=== PATIENT | female | born 1940 | race Caucasian/White ===

== ENCOUNTER 2016-10-07 10:32 | Emergency (ER) | payer MEDICARE, BC ==
[~2016-10-07] VITALS: Ht 162.6 cm; Wt 69.9 kg
[2016-10-07 10:32] VITALS: BP 167/89
--- NOTE | 2016-10-07 11:26 | PHYS DOC ---
General Chief Complaint: EARACHE/EAR PAIN Stated Complaint: HEARING LOSS Time Seen by MD: 10:34 Source: patient, old records Exam Limitations: no limitations Problems: History of Present Illness Initial Comments "I have ear problems my whole life, my body will not clear the wax... I have to see an ENT regularly to clean them out." Pt is 76/F to ED c/o wax in right ear. Pt states she missed her appt for ear cleaning last month with ENT due to spouse 's medical problems. She has rescheduled this visit for this Thursday 10/12. Pt states this am right ear muffled hearing, sensation of fullness. She tried to pop it at home without difficulty. She has allergic rhinitis but states those symptoms have been controlled, feels today's sx are wax related. 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 No right ear trauma/discharge/pain, no ALVARENGA/ focal neurodef. Pt has HTN baseline, on 4 meds controlled. States she was/is very anxious this am, compounded by watching BP monitor in ED. 193/76 in ED (took her daily meds ) no cp/sob/alvarenga/focal neurodeficit, appears to be physiologic response to stress. Not currently on coumadin due to pacemaker related chest hematoma, has cardio f/ u scheduled. Timing/Duration: gradual, this morning Severity: moderate Location: ear (R) Prearrival Treatment: no prearrival treatment Modifying Factors: worse with lying down Associated Symptoms: change in hearing, other Allergies: Coded Allergies: Iodinated Contrast Media - IV Dye (Verified Allergy, Mild, ANAPHYLAXIS, 10/19/14) diphenhydramine (Verified Allergy, Mild, EXCITABILITY, 10/19/14) Past Medical History Medical History: other (CAD, CHF, atrial fibrillation, DM, HLP, GERD, HTN, allergic rhinitis, hearing loss) Surgical History: other (cardiac stent x 5, pacemaker, ablation) Social History Smoker: non-smoker Alcohol: none Drugs: none Constitutional: denies chills, denies diaphoresis, denies fever, denies malaise Eyes: denies blindness, denies blurred vision, denies drainage, denies decreased acuity Ears: see HPI Nose: denies congestion, denies epistaxis Throat: denies pain, denies swelling, denies neck stiffness Respiratory: denies cough, denies shortness of breath, denies wheezing Cardiovascular: denies chest pain, denies palpitations, denies syncope Gastrointestinal: denies diarrhea, denies nausea, denies vomiting Neurological: denies headache, denies numbness, denies paresthesia, denies weakness Physical Exam General Appearance: WD/WN, no apparent distress Eyes: bilateral eye EOMI, bilateral eye PERRL, bilateral eye normal inspection Ears: right ear TM normal, right ear foreign body (cerumen impaction), bilateral ear auricle normal, bilateral ear canal normal Nose: normal inspection Mouth/Throat: normal mouth inspection, pharynx normal Neck: non-tender, supple Cardiovascular/Respiratory: normal peripheral pulses, no respiratory distress Neurologic/Psychiatric: icer hand II-XII nml as tested, no motor/sensory deficits, alert, normal mood/affect, oriented x 3 Skin: normal color, warm/dry Orders, Labs, Meds 1203: recheck after lavage, right canal no cerumen. Pt states she feels much better, no new or progressive symptoms. Departure Time of Disposition: 12:03 Disposition: 01 HOME, SELF-CARE Diagnosis: cerumen impaction right, HTN Condition: IMPROVED Patient Instructions: Cerumen Impaction-SportsMed, Hypertension, [id number] Additional Instructions: Rest, no strenuous activity. Continue current meds. Follow up with ENT on Thursday 10/12 as scheduled. Return to ED with new or changing symptoms. HELADIO GIPSON DO Oct 07, 2016 11:26
== END 2016-10-07 12:31 | disposition home or self-care (01) ==
LOC: ER 10:35
DX: H61.21 Impacted cerumen, right ear (principal); I25.10 Atherosclerotic heart disease of native coronary artery without angina pectoris; I11.0 Hypertensive heart disease with heart failure; I50.9 Heart failure, unspecified; E78.5 Hyperlipidemia, unspecified; I48.91 Unspecified atrial fibrillation; K21.9 Gastro-esophageal reflux disease without esophagitis; H91.92 Unspecified hearing loss, left ear; Z95.0 Presence of cardiac pacemaker; Z95.5 Presence of coronary angioplasty implant and graft; Z91.041 Radiographic dye allergy status; Z88.8 Allergy status to other drugs, medicaments and biological substances
CPT/HCPCS: 69209; 99282

== ENCOUNTER 2017-03-23 17:32 | Emergency (ER) | payer MEDICARE, BC ==
[~2017-03-23] VITALS: Ht 162.6 cm; Wt 70.0 kg
[2017-03-23 17:52] VITALS: BP 225/77
--- NOTE | 2017-03-23 18:18 | PHYS DOC ---
Past History Past Medical History: Hypertension, Other Past Surgical History: Other Smoking: Non-smoker Alcohol Use: None Drug Use: None Adult General Chief Complaint Chief Complaint: HYPERTENSION HPI HPI Patient is a 76 year old female who presents with hypertension. She states she has high blood pressures been instructed that when he gets above 180s to do one tablet of clonidine. She did this today and denies any nausea vomiting chest pain headache or other concerning symptoms. Her blood pressure upon my evaluation is the 170s. She has had a past medical history of A. fib had ablations in addition to coronary stents in the past. She follows at the [facility] cardiology group. Review of Systems Review of Systems Constitutional: Denies fever or chills [] Eyes: Denies change in visual acuity, redness, or eye pain [] HENT: Denies nasal congestion or sore throat [] Respiratory: Denies cough or shortness of breath [] Cardiovascular: No additional information not addressed in HPI [] GI: Denies abdominal pain, nausea, vomiting, bloody stools or diarrhea [] : Denies dysuria or hematuria [] Musculoskeletal: Denies back pain or joint pain [] Integument: Denies rash or skin lesions [] Neurologic: Denies headache, focal weakness or sensory changes [] Endocrine: Denies polyuria or polydipsia [] Allergies Allergies Allergies Coded Allergies Type Severity Reaction Last Updated Verified Iodinated Contrast Media - IV Dye Allergy Mild ANAPHYLAXIS 10/19/14 Yes diphenhydramine Allergy Mild EXCITABILITY 10/19/14 Yes Physical Exam Physical Exam Constitutional: Well developed, well nourished, no acute distress, non-toxic appearance. [] HENT: Normocephalic, atraumatic, bilateral external ears normal, oropharynx moist, no oral exudates, nose normal. [] Eyes: PERRLA, EOMI, conjunctiva normal, no discharge. [] Neck: Normal range of motion, no tenderness, supple, no stridor. [] Cardiovascular:Heart rate regular rhythm, no murmur [] Lungs & Thorax: Bilateral breath sounds clear to auscultation [] Abdomen: Bowel sounds normal, soft, no tenderness, no masses, no pulsatile masses. [] Skin: Warm, dry, no erythema, no rash. [] Back: No tenderness, no CVA tenderness. [] Extremities: No tenderness, no cyanosis, no clubbing, ROM intact, no edema. [] Neurologic: Alert and oriented X 3, normal motor function, normal sensory function, no focal deficits noted. [] Psychologic: Affect normal, judgement normal, mood normal. [] Current Patient Data Vital Signs Vital Signs Date Time Temp Pulse Resp B/P (MAP) Pulse Ox O2 Delivery O2 Flow Rate FiO2 03/23/17 17:52 98.1 65 20 96 Room Air EKG EKG EKG shows normal sinus rhythm with rate [address] elevations or T-wave inversions, normal axis, QTC 390 ms, as interpreted by me. Radiology/Procedures Radiology/Procedures One view chest x-ray did not show any focal salt elevations, bony abnormality's , pneumothorax, as interpreted by me. Impressions: Hypertension Course & Med Decision Making Course & Med Decision Making Pertinent Labs and Imaging studies reviewed. (See chart for details) Labs, chest x-ray, EKG nonacute. Her blood pressure upon arrival was 210 and then slowly came down 170s and as 150s. She is to follow-up with primary care physician. Return precautions given. She is agreeable plan and is in stable condition this time. Dragon Disclaimer Dragon Disclaimer This chart was dictated in whole or in part using Voice Recognition software in a busy, high-work load, and often noisy Emergency Department environment. It may contain unintended and wholly unrecognized errors or omissions. Departure Departure: Impression: Primary Impression: HTN (hypertension) Disposition: HOME, SELF-CARE Condition: STABLE Referrals: NARDA MEHTA MD (PCP) Patient Instructions: Arterial Hypertension Additional Instructions: Your EKG, blood work, chest x-ray did not show any acute abnormality's. Your blood pressure came down by itself after you took clonidine. Please continue your clonidine regimen that your milk collector prescribed to your already. Return ER if you have surely high blood pressure that's not responding to clonidine, you have chest pain, nausea, shortness of breath or other concerns. Please follow-up with your primary care physician within the next week. BRITTANI GARNER MD Mar 23, 2017 18:18
--- NOTE | 2017-03-23 18:49 | EKG ---
[address] [address] Test Date: 2017-03-23 Test Time: 18:42:07 Pat Name: CHRISTOPHER HAYNES Department: Room: Gender: F Vice President Integrated: : 1940 Requested By: BRITTANI GARNER Order Number: [id number] Reading MD: Measurements Intervals [place] Rate: 65 P: 90 FL: 282 QRS: 38 QRSD: 88 T: -34 QT: 366 QTc: 385 Interpretive Statements SINUS RHYTHM PROLONGED [place] INTERVAL ST & T ABNORMALITY, CONSIDER INFERIOR ISCHEMIA OR LEFT VENTRICULAR STRAIN ABNORMAL ECG RI6.01 No previous ECG available for comparison
[2017-03-23 19:26] LABS: BASO % 0 % (0-3); EOS # 0.1 x10^3/uL (0.0-0.7); EOS % 1 % (0-3); HEMATOCRIT 36.7 % (36.0-47.0); HEMOGLOBIN 12.5 g/dL (12.0-15.5); LYMPH % 12 % (24-48); MEAN CORPUSCULAR HEMOGLOBIN 29 pg (25-35); MEAN CORPUSCULAR HGB CONC 34 g/dL (31-37); MEAN CORPUSCULAR VOLUME 84 fL (79-100); MONO # 0.9 x10^3/uL (0.0-1.1); MONO % 5 % (0-9); NEUT # 13.3 x10^3uL (1.8-7.7); NEUT % 82 % (31-73); PLATELET COUNT 275 x10^3/uL (140-400); RED BLOOD COUNT 4.39 x10^6/uL (3.50-5.40); RED CELL DISTRIBUTION WIDTH 13.7 % (11.5-14.5); WHITE BLOOD COUNT 16.3 x10^3/uL (4.0-11.0)
[2017-03-23 19:40] LABS: ALBUMIN 3.7 g/dL (3.4-5.0); CREATININE 1.2 mg/dL (0.6-1.0); DIRECT BILIRUBIN 0.2 mg/dL (0.0-0.2); GFR 43.8; MAGNESIUM 1.8 mg/dL (1.8-2.4); POTASSIUM 4.2 mmol/L (3.5-5.1); TOTAL BILIRUBIN 0.5 mg/dL (0.2-1.0); TOTAL PROTEIN 7.6 g/dL (6.4-8.2)
[2017-03-23 20:33] LABS: % LYMPHS 12 % (24-48); % MONOS 5 % (0-10); % MYELOS 1 % (0-0); % SEGS 82 % (35-66)
[2017-03-23 20:34] LABS: PLT ESTIMATE ADEQUATE (ADEQUATE)
--- NOTE | 2017-03-24 08:45 | RAD ---
PORTABLE CHEST 1V Clinical Indication: htn Comparison: Chest radiograph dated 10/19/2014. Findings: Stable left pacemaker. Normal lung volume. No new consolidation. Stable pulmonary vasculature. No pleural effusion or pneumothorax. Stable mild cardiomegaly. Stable atherosclerotic and tortuous thoracic aorta. No acute osseous abnormality. IMPRESSION: No acute cardiopulmonary process.
== END 2017-03-23 20:13 | disposition home or self-care (01) ==
LOC: ER 17:32
DX: I10 Essential (primary) hypertension (principal); I48.91 Unspecified atrial fibrillation; Z95.5 Presence of coronary angioplasty implant and graft; Z88.8 Allergy status to other drugs, medicaments and biological substances; Z91.041 Radiographic dye allergy status
CPT/HCPCS: 36415; 71010; 80048; 80076; 82553; 83735; 83880; 84443; 84484; 85007; 85025; 93005; 99285-25

== ENCOUNTER 2017-05-23 22:05 | Emergency (ER) | payer MEDICARE, BC ==
[~2017-05-23] VITALS: Ht 162.6 cm; Wt 70.0 kg
[2017-05-23] MEDS ORDERED: ASPIRIN 81 MG TAB.CHEW PO ONE (22:15)
[2017-05-23] MEDS ORDERED: NITROGLYCERIN SUBLINGUAL 0.4 MG BOTTLE OF 25. SL PRN (22:45)
[2017-05-23 23:09] LABS: BASO # 0.1 x10^3/uL (0.0-0.2); BASO % 1 % (0-3); EOS # 0.2 x10^3/uL (0.0-0.7); EOS % 2 % (0-3); HEMOGLOBIN 11.5 g/dL (12.0-15.5); LYMPH # 2.2 x10^3/uL (1.0-4.8); LYMPH % 21 % (24-48); MEAN CORPUSCULAR HEMOGLOBIN 29 pg (25-35); MEAN CORPUSCULAR HGB CONC 35 g/dL (31-37); MEAN CORPUSCULAR VOLUME 83 fL (79-100); MONO # 0.7 x10^3/uL (0.0-1.1); MONO % 7 % (0-9); NEUT # 7.4 x10^3uL (1.8-7.7); NEUT % 70 % (31-73); PLATELET COUNT 237 x10^3/uL (140-400); RED BLOOD COUNT 3.96 x10^6/uL (3.50-5.40); WHITE BLOOD COUNT 10.6 x10^3/uL (4.0-11.0)
[2017-05-23 23:28] LABS: ALBUMIN 3.5 g/dL (3.4-5.0); ALBUMIN/GLOBULIN RATIO 0.9 (1.0-1.7); CALCIUM 8.5 mg/dL (8.5-10.1); CREATININE 1.2 mg/dL (0.6-1.0); GFR 43.8; MAGNESIUM 1.5 mg/dL (1.8-2.4); POTASSIUM 3.9 mmol/L (3.5-5.1); TOTAL BILIRUBIN 0.4 mg/dL (0.2-1.0); TOTAL PROTEIN 7.3 g/dL (6.4-8.2)
--- NOTE | 2017-05-24 00:25 | PHYS DOC ---
Past History Past Medical History: Hypertension, DE, Other Past Surgical History: Other Smoking: Non-smoker Alcohol Use: None Drug Use: None Adult General Chief Complaint Chief Complaint: CHEST PAIN HPI HPI Patient is a 76 year old female who presents with chest pain. the patient reports onset of chest heaviness/pressure while at rest just prior to arrival today. She reports pain radiates to jaw/neck, associated with shortness of breath, nausea, diaphoresis. Denies fevers/chills, cough, lower extremity pain/ swelling. States pain is similar to symptoms she experienced with prior DE & she has at least 6 cardiac stents. She has had several similar episodes over past 48 hours. She took nitro prior to arrival & her pain has improved. She has history of afib not currently anticoagulated, hypertension with poorly controlled blood pressure on multiple medications, diabetes. She is a nonsmoker. 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 Boyce, & her PCP is Dr. Singh. Review of Systems Review of Systems Constitutional: Denies fever or chills Eyes: Denies change in visual acuity HENT: Denies nasal congestion or sore throat Respiratory: Denies cough, reports shortness of breath Cardiovascular: Reports chest pain or edema GI: Reports nausea. Denies abdominal pain, vomiting, bloody stools or diarrhea : Denies dysuria or hematuria Musculoskeletal: Denies back pain or joint pain Integument: Denies rash or skin lesions Neurologic: Denies headache, focal weakness or sensory changes All other systems were reviewed and found to be within normal limits, except as documented in this note. Current Medications Current Medications Current Medications Medications (Trade) Dose Ordered Sig/[place] Start Time Stop Time Status Last Admin Dose Admin Aspirin (Children'S Aspirin) 324 mg 1X ONCE 05/23/17 22:15 05/23/17 22:56 DC 05/23/17 22:46 324 MG Nitroglycerin (Nitrostat) 0.4 mg PRN Q5MIN PRN 05/23/17 22:45 05/23/17 22:45 0.4 MG Allergies Allergies Allergies Coded Allergies Type Severity Reaction Last Updated Verified Iodinated Contrast Media - IV Dye Allergy Mild ANAPHYLAXIS 10/19/14 Yes diphenhydramine Allergy Mild EXCITABILITY 10/19/14 Yes Physical Exam Physical Exam Constitutional: Well developed, well nourished, no acute distress, non-toxic appearance. HENT: Normocephalic, atraumatic, bilateral external ears normal, oropharynx moist, nose normal. Eyes: PERRLA, EOMI, conjunctiva normal, no discharge. Neck: supple, no stridor. Cardiovascular: RRR, no murmurs, no edema. Lungs & Thorax: LCTAB, no wheezing, no respiratory distress. no reproducible tenderness with palpation over anterior chest wall. Abdomen: soft, nontender, nondistended. Skin: Warm, dry, no erythema, no rash. Back: No tenderness. Extremities: No tenderness, no edema. no calf tenderness or swelling. Neurologic: Alert and oriented X 3, no focal deficits noted. Psychologic: Affect normal, judgement normal, mood normal. Current Patient Data Vital Signs Vital Signs Date Time Temp Pulse Resp B/P (MAP) Pulse Ox O2 Delivery O2 Flow Rate FiO2 05/23/17 22:45 65 176/63 05/23/17 22:05 99.8 20 98 Room Air Lab Results Laboratory Tests Test 05/23/17 22:45 White Blood Count 10.6 x10^3/uL (4.0-11.0) Red Blood Count 3.96 x10^6/uL (3.50-5.40) Hemoglobin 11.5 g/dL (12.0-15.5) L Hematocrit 33.0 % (36.0-47.0) L Mean Corpuscular Volume 83 fL (79-100) Mean Corpuscular Hemoglobin 29 pg (25-35) Mean Corpuscular Hemoglobin Concent 35 g/dL (31-37) Red Cell Distribution Width 14.0 % (11.5-14.5) Platelet Count 237 x10^3/uL (140-400) Neutrophils (%) (Auto) 70 % (31-73) Lymphocytes (%) (Auto) 21 % (24-48) L Monocytes (%) (Auto) 7 % (0-9) Eosinophils (%) (Auto) 2 % (0-3) Basophils (%) (Auto) 1 % (0-3) Neutrophils # (Auto) 7.4 x10^3uL (1.8-7.7) Lymphocytes # (Auto) 2.2 x10^3/uL (1.0-4.8) Monocytes # (Auto) 0.7 x10^3/uL (0.0-1.1) Eosinophils # (Auto) 0.2 x10^3/uL (0.0-0.7) Basophils # (Auto) 0.1 x10^3/uL (0.0-0.2) Prothrombin Time 9.7 SEC (9.4-11.4) Prothrombin Time INR 0.9 (0.9-1.1) Sodium Level 136 mmol/L (136-145) Potassium Level 3.9 mmol/L (3.5-5.1) Chloride Level 101 mmol/L (98-107) Carbon Dioxide Level 23 mmol/L (21-32) Anion Gap 12 (6-14) Blood Urea Nitrogen 20 mg/dL (7-20) Creatinine 1.2 mg/dL (0.6-1.0) H Estimated GFR (Cockcroft-Gault) 43.8 BUN/Creatinine Ratio 17 (6-20) Glucose Level 317 mg/dL (70-99) H Calcium Level 8.5 mg/dL (8.5-10.1) Magnesium Level 1.5 mg/dL (1.8-2.4) L Total Bilirubin 0.4 mg/dL (0.2-1.0) Aspartate Amino Transferase (AST) 18 U/L (15-37) Alanine Aminotransferase (ALT) 23 U/L (14-59) Alkaline Phosphatase 72 U/L (46-116) Troponin I Quantitative < 0.017 ng/mL (0-0.055) IC-Shg-S-Type Natriuretic Peptide 333 pg/mL (0-449) Total Protein 7.3 g/dL (6.4-8.2) Albumin 3.5 g/dL (3.4-5.0) Albumin/Globulin Ratio 0.9 (1.0-1.7) L EKG EKG interpreted by me: 2218: NSR rate 65, no ST elevation, T waves inverted in leads 1, 2, 3, aVF, V5-6, no ST depression, ME prolonged 286 ms, no ectopy. appears similar to previous dated 03/22/2017 [] Radiology/Procedures Radiology/Procedures CXR portable, interpreted by me: no cardiomegaly, no infiltrate, no pneumothorax, no acute process.[] Course & Med Decision Making Course & Med Decision Making Pertinent Labs and Imaging studies reviewed. (See chart for details) The patient presents with chest pain. She was given aspirin 324 mg, nitro sublingual. Her pain essentially resolved although she did have another episode of brief pain with ambulation to the restroom here. Obtained labs, EKG , CXR. EKG appears stable from previous visit, troponin negative. Recommended admission for further cardiology evaluation, & she requests transfer to [facility] as she receives all her care at that hospital. Discussed with triage/transfer nurse, patient accepted for transfer & admission by Dr. Eli. The patient is to be transferred by [facility], in stable condition. [] Dragon Disclaimer Dragon Disclaimer This electronic medical record was generated, in whole or in part, using a voice recognition dictation system. Departure Departure: Impression: Primary Impression: Chest pain Additional Impressions: Acute angina Hypertension Hyperglycemia Disposition: 05 XFER OTHER Condition: STABLE Problem Qualifiers VIV CRAFT MD May 24, 2017 00:25
--- NOTE | 2017-05-24 01:23 | EKG ---
[address] [address] Test Date: 2017-05-23 Test Time: 22:18:53 Pat Name: CHRISTOPHER HAYNES Department: Room: Gender: F Rehabilitation Case Coordinator: DIMITRI : 1940 Requested By: VIV CRAFT Order Number: [id number] Reading MD: Measurements Intervals [place] Rate: 65 P: 90 TN: 286 QRS: 47 QRSD: 90 T: -86 QT: 388 QTc: 408 Interpretive Statements SINUS RHYTHM PROLONGED [place] INTERVAL QRS(T) CONTOUR ABNORMALITY CONSISTENT WITH ANTEROSEPTAL INFARCT AGE UNDETERMINED CONSIDER INFERIOR MYOCARDIAL DAMAGE ST & T ABNORMALITY, CONSIDER LATERAL ISCHEMIA OR LEFT VENTRICULAR STRAIN ABNORMAL ECG RI6.01 Unconfirmed report No previous ECG available for comparison
[2017-05-24 01:47] VITALS: BP 160/62
--- NOTE | 2017-05-24 08:08 | RAD ---
Portable chest, 05/23/2017: History: Chest pain Comparison is made to a study from 03/23/2017. A left-sided transvenous pacemaker remains in place with 2 leads extending into the right heart. The heart size and pulmonary vascularity are normal. There is calcific plaquing of the aorta. No pulmonary infiltrate is seen. There is no evidence of pleural fluid. IMPRESSION: No acute cardiopulmonary abnormality is detected.
== END 2017-05-24 02:10 | disposition short-term general hospital (02) ==
LOC: ER 22:05
DX: I20.8 Other forms of angina pectoris (principal); I10 Essential (primary) hypertension; R73.9 Hyperglycemia, unspecified; I25.2 Old myocardial infarction; I48.91 Unspecified atrial fibrillation; Z95.5 Presence of coronary angioplasty implant and graft; Z95.0 Presence of cardiac pacemaker; Z88.8 Allergy status to other drugs, medicaments and biological substances; Z91.041 Radiographic dye allergy status
CPT/HCPCS: 36415; 71010; 80053; 83735; 83880; 84484; 85025; 85610; 93005; 99285-25

== ENCOUNTER 2017-11-22 19:50 | Emergency (ER) | payer MEDICARE, BC ==
[~2017-11-22] VITALS: Ht 162.6 cm; Wt 65.3 kg
[2017-11-22] MEDS ORDERED: IV NORMAL SALINE 1,000ML 1,000 ML IV SCH (20:24)
[2017-11-22] MEDS ORDERED: ONDANSETRON ODT 4 MG TAB.RAPDIS PO ONE (20:30)
[2017-11-22 20:42] LABS: BASO # 0.1 x10^3/uL (0.0-0.2); BASO % 1 % (0-3); EOS % 0 % (0-3); HEMATOCRIT 26.8 % (36.0-47.0); HEMOGLOBIN 8.9 g/dL (12.0-15.5); LYMPH # 0.8 x10^3/uL (1.0-4.8); LYMPH % 6 % (24-48); MEAN CORPUSCULAR HEMOGLOBIN 27 pg (25-35); MEAN CORPUSCULAR HGB CONC 33 g/dL (31-37); MEAN CORPUSCULAR VOLUME 80 fL (79-100); MONO # 0.3 x10^3/uL (0.0-1.1); MONO % 3 % (0-9); NEUT # 12.2 x10^3uL (1.8-7.7); NEUT % 91 % (31-73); PLATELET COUNT 325 x10^3/uL (140-400); RED BLOOD COUNT 3.36 x10^6/uL (3.50-5.40); RED CELL DISTRIBUTION WIDTH 15.5 % (11.5-14.5); WHITE BLOOD COUNT 13.5 x10^3/uL (4.0-11.0)
--- NOTE | 2017-11-22 20:44 | PHYS DOC ---
Past History Past Medical History: Hypertension, [place], Other Past Surgical History: Other Smoking: Non-smoker Alcohol Use: None Drug Use: None Adult General Chief Complaint Chief Complaint: CHEST PAIN HPI HPI Patient is a 77 year old female who presents with complaint of substernal chest pain that started at approximately 1500 today. The patient states that the symptoms came on suddenly while at rest. The patient states that she is having 7 out of 10 pain in the lower chest which radiates up towards her left jaw. Patient denies any associated shortness of breath, diaphoresis, or nausea at this time. The patient states that she has history of coronary artery disease status post multivessel bypass surgery done in May 2017. Patient states that she had a CT scan of the chest completed earlier today at [facility] but has not received any results of testing. Patient states she is currently on warfarin therapy. She follows with Dr. Singh for primary care and Dr. Monsalve at [facility] for cardiology care. Patient denies any fever. Patient states that she took 2 nitroglycerin with no relief in symptoms. Review of Systems Review of Systems Constitutional: Denies fever or chills [] Eyes: Denies change in visual acuity, redness, or eye pain [] HENT: Denies nasal congestion or sore throat [] Respiratory: Denies cough or shortness of breath [] Cardiovascular: Chest pain[] GI: Denies abdominal pain, nausea, vomiting, bloody stools or diarrhea [] : Denies dysuria or hematuria [] Musculoskeletal: Denies back pain or joint pain [] Integument: Denies rash or skin lesions [] Neurologic: Denies headache, focal weakness or sensory changes [] All other systems were reviewed and found to be within normal limits, except as documented in this note. Current Medications Current Medications Current Medications Medications (Trade) Dose Ordered Sig/Mariola Start Time Stop Time Status Last Admin Dose Admin Aspirin (Children'S Aspirin) 324 mg 1X ONCE 11/22/17 20:30 11/22/17 20:31 UNV Fentanyl Citrate (Fentanyl 2ml Vial) 50 mcg PRN Q15MIN PRN 11/22/17 20:30 11/23/17 20:29 UNV Ondansetron HCl (Zofran Odt) 4 mg 1X ONCE 11/22/17 20:30 11/22/17 20:31 UNV Sodium Chloride 1,000 ml @ 1,000 mls/hr Q1H 11/22/17 20:24 11/22/17 21:23 UNV Allergies Allergies Allergies Coded Allergies Type Severity Reaction Last Updated Verified Iodinated Contrast Media - IV Dye Allergy Mild ANAPHYLAXIS 10/19/14 Yes diphenhydramine Allergy Mild EXCITABILITY 10/19/14 Yes Physical Exam Physical Exam Constitutional: Alert, afebrile, appears in moderate discomfort. [] HENT: Normocephalic, atraumatic, bilateral external ears normal, oropharynx moist, no oral exudates, nose normal. [] Eyes: PERRLA, EOMI, conjunctiva normal, no discharge. [] Neck: Normal range of motion, no tenderness, supple, no stridor. [] Cardiovascular:Heart rate regular rhythm, no murmur [] Lungs & Thorax: Bilateral breath sounds clear to auscultation [] Abdomen: Bowel sounds normal, soft, no tenderness, no masses, no pulsatile masses. [] Skin: Warm, dry, no erythema, no rash. [] Back: No tenderness, no CVA tenderness. [] Extremities: No tenderness, no cyanosis, no clubbing, ROM intact, trace pedal edema bilaterally. [] Neurologic: Alert and oriented X 3, normal motor function, normal sensory function, no focal deficits noted. [] Current Patient Data Vital Signs Vital Signs Date Time Temp Pulse Resp B/P (MAP) Pulse Ox O2 Delivery O2 Flow Rate FiO2 11/22/17 20:54 21 96 Room Air 11/22/17 19:57 98.4 Lab Results Laboratory Tests Test 11/22/17 20:15 White Blood Count 13.5 x10^3/uL Red Blood Count 3.36 x10^6/uL Hemoglobin 8.9 g/dL Hematocrit 26.8 % Mean Corpuscular Volume 80 fL Mean Corpuscular Hemoglobin 27 pg Mean Corpuscular Hemoglobin Concent 33 g/dL Red Cell Distribution Width 15.5 % Platelet Count 325 x10^3/uL Neutrophils (%) (Auto) 91 % Lymphocytes (%) (Auto) 6 % Monocytes (%) (Auto) 3 % Eosinophils (%) (Auto) 0 % Basophils (%) (Auto) 1 % Neutrophils # (Auto) 12.2 x10^3uL Lymphocytes # (Auto) 0.8 x10^3/uL Monocytes # (Auto) 0.3 x10^3/uL Eosinophils # (Auto) 0.0 x10^3/uL Basophils # (Auto) 0.1 x10^3/uL Prothrombin Time 33.2 SEC Prothromb Time International Ratio 3.3 Activated Partial Thromboplast Time 39 SEC Sodium Level 135 mmol/L Potassium Level 4.2 mmol/L Chloride Level 98 mmol/L Carbon Dioxide Level 22 mmol/L Anion Gap 15 Blood Urea Nitrogen 28 mg/dL Creatinine 1.6 mg/dL Estimated GFR (Cockcroft-Gault) 31.3 BUN/Creatinine Ratio 18 Glucose Level 397 mg/dL Calcium Level 8.6 mg/dL Magnesium Level 1.8 mg/dL Total Bilirubin 0.8 mg/dL Aspartate Amino Transf (AST/SGOT) 19 U/L Alanine Aminotransferase (ALT/SGPT) 16 U/L Alkaline Phosphatase 95 U/L Creatine Kinase 84 U/L Creatine Kinase MB (Mass) 1.3 ng/mL Creatine Kinase MB Relative Index 1.5 % Troponin I Quantitative < 0.017 ng/mL [id number]-[id number]-G-Type Natriuretic Peptide 2221 pg/mL Total Protein 7.4 g/dL Albumin 3.7 g/dL Albumin/Globulin Ratio 1.0 Lipase 158 U/L Current Medications Medications (Trade) Dose Ordered Sig/Mariola Route PRN Reason Start Time Stop Time Status Last Admin Dose Admin Aspirin (Children'S Aspirin) 324 mg 1X ONCE PO 11/22/17 20:45 11/22/17 20:50 DC 11/22/17 20:46 Fentanyl Citrate (Fentanyl 2ml Vial) 50 mcg PRN Q15MIN PRN IV PAIN GREATER THAN 3/10 11/22/17 20:30 11/23/17 20:29 11/22/17 20:54 Sodium Chloride 1,000 ml @ 1,000 mls/hr Q1H IV 11/22/17 20:24 11/22/17 21:23 DC 11/22/17 20:47 Ondansetron HCl (Zofran Odt) 4 mg 1X ONCE PO 11/22/17 20:30 11/22/17 20:45 DC 11/22/17 20:43 EKG EKG Interpret by me: Heart rate 91, AV paced rhythm, no acute ST elevations, no acute changes from previous EKG.[] Radiology/Procedures Radiology/Procedures One view chest x-ray interpreted by me: Small bilateral pleural effusions, no infiltrate, cardiomegaly[] Course & Med Decision Making Course & Med Decision Making Pertinent Labs and Imaging studies reviewed. (See chart for details) Patient was given 324 mg of aspirin and one dose of IV fentanyl in the emergency department. The patient's troponin was negative in the emergency department. The patient's pain has improved from 7 to 4. HEART score is 7, placing patient in high risk category for acute cardiac event. The patient is appropriate for admission at this time to rule out acute coronary syndrome. After speaking with the patient, she states that she is comfortable with being admitted, however she would like to be admitted at [facility] where her activities therapist practices. I contacted the transfer line. The patient was accepted by Dr. Peterson. Patient will be transferred by ground EMS as a direct admit. Dragon Disclaimer Dragon Disclaimer This electronic medical record was generated, in whole or in part, using a voice recognition dictation system. Departure Departure: Impression: Primary Impression: Chest pain Additional Impressions: Coronary artery disease Type 2 diabetes mellitus Hypertension Disposition: XF SHT-TRM HOSP Condition: STABLE Referrals: NARDA SINGH MD (PCP) Problem Qualifiers Primary Impression: Chest pain Chest pain type: unspecified Qualified Codes: R07.9 - Chest pain, unspecified Additional Impressions: Coronary artery disease Coronary Disease-Associated Artery/Lesion type: unspecified vessel or lesion type [place] vs. transplanted heart: [place] heart Associated angina: with other forms of angina Qualified Codes: I25.118 - Atherosclerotic heart disease of [place] coronary artery with other forms of angina pectoris Type 2 diabetes mellitus Diabetes mellitus alf insulin use: unspecified terminal system operator insulin use status Diabetes mellitus complication status: with hyperglycemia Qualified Codes: E11.65 - Type 2 diabetes mellitus with hyperglycemia Hypertension Hypertension type: essential hypertension Qualified Codes: I10 - Essential ( primary) hypertension CAROLINE MCNULTY MD Nov 22, 2017 20:44
[2017-11-22] MEDS ORDERED: ASPIRIN 81 MG TAB.CHEW PO ONE (20:45)
--- NOTE | 2017-11-22 20:48 | EKG ---
[address] [address] Test Date: 2017-11-22 Test Time: 19:56:27 Pat Name: CHRISTOPHER HAYNES Department: Room: Gender: F Reporting Specialist: KAREN : 1940 Requested By: CAROLINE MCNULTY Order Number: [id number] Reading MD: Measurements Intervals [place] Rate: 91 P: -90 [place]: 250 QRS: 53 QRSD: 98 T: -164 QT: 348 QTc: 435 Interpretive Statements SUPRAVENTRICULAR RHYTHM PROLONGED [place] INTERVAL ST ABNORMALITY, POSSIBLE HIGH LATERAL SUBENDOCARDIAL INJURY INFERIOR SUBENDOCARDIAL INJURY ABNORMAL ECG RI6.01 No previous ECG available for comparison
[2017-11-22 20:59] LABS: ALBUMIN 3.7 g/dL (3.4-5.0); CALCIUM 8.6 mg/dL (8.5-10.1); CREATININE 1.6 mg/dL (0.6-1.0); GFR 31.3; MAGNESIUM 1.8 mg/dL (1.8-2.4); TOTAL BILIRUBIN 0.8 mg/dL (0.2-1.0); TOTAL PROTEIN 7.4 g/dL (6.4-8.2)
[2017-11-22 21:01] LABS: POTASSIUM 4.2 mmol/L (3.5-5.1)
[2017-11-22 22:10] VITALS: BP 139/55
--- NOTE | 2017-11-22 23:06 | RAD ---
EXAM: CHEST 1 VIEW. HISTORY: Chest pain. COMPARISON: May 23, 2017. FINDINGS: A frontal view of the chest is obtained. A left-sided pacemaker has its leads in the right atrium and right ventricle. There are changes of coronary artery bypass grafting. There are mild interstitial opacities in the bases. There is no pneumothorax. There is a small right pleural effusion. The heart is moderately enlarged. There are atherosclerotic calcifications of the aorta. IMPRESSION: 1. Mild pulmonary edema. Small right pleural effusion. 2. Moderate cardiomegaly. Electronically signed by: Kermit Bay MD (11/22/2017 11:02 PM) [facility]
== END 2017-11-22 22:42 | disposition short-term general hospital (02) ==
LOC: ER 19:50
DX: I25.118 Atherosclerotic heart disease of native coronary artery with other forms of angina pectoris (principal); E11.65 Type 2 diabetes mellitus with hyperglycemia; I10 Essential (primary) hypertension; I25.2 Old myocardial infarction; Z79.01 Long term (current) use of anticoagulants; Z88.8 Allergy status to other drugs, medicaments and biological substances; Z91.041 Radiographic dye allergy status
CPT/HCPCS: 36415; 71045; 80053; 82553; 83690; 83735; 83880; 84484; 85025; 85610; 85730; 93005; 96361; 96374; 99285; J3010; Q0162; J7030

== ENCOUNTER → 2021-01-09 | Outpatient (CLI) | payer MEDICARE, BC ==
--- NOTE | 2021-01-09 13:30 | RAD ---
INDICATION: Screening for osteopenia/osteoporosis. Reason: SCREENING / Spl. Instructions: / History : . Postmenopausal evaluation. COMPARISON: None. TECHNIQUE: Bone densitometry was performed through the lumbar spine and proximal femur. IMPRESSION: Lumbar Spine: BMD: 1.48 T-Score: 2.5 Range: Normal Proximal Femur: BMD: 0.92 T-Score: -0.3 Range: Normal World Health Organization Criteria for Bone Density: T-Score: > -1.0: Normal Range < -1.0 to -2.5: Osteopenic Range < -2.5: Osteoporotic Range Electronically signed by: Gregory Merrill MD (01/09/2021 1:28 PM) [id number]
== END ==
LOC: DXRAD 10:07
PROVIDERS: ATTEND Family Medicine
DX: Z78.0 Asymptomatic menopausal state (principal)
CPT/HCPCS: 77080

== ENCOUNTER → 2021-01-09 | Outpatient (CLI) | payer MEDICARE, BC ==
--- NOTE | 2021-01-09 11:18 | RAD ---
XR CHEST 2V 01/09/2021 11:12 AM Indication: A. Fib Comparison: Chest radiograph November 22, 2017 Technique: PA and lateral radiographs of the chest Findings: The lungs are clear of acute airspace opacity. There is a dual lead pacer overlying the left chest in similar position. There are median sternotomy wires which are intact. The cardiomediastinal silhouet te is mildly enlarged, stable. No pleural effusion or interstitial opacity. There is no pneumothorax. Impression: No evidence of CHF or pneumonia. Electronically signed by: Alejandro Hwang (01/09/2021 11:16 AM) [id number]
== END ==
LOC: RAD 10:11
PROVIDERS: ATTEND Internal Medicine Cardiovascular Disease
DX: I51.7 Cardiomegaly (principal); I48.0 Paroxysmal atrial fibrillation; Z79.899 Other long term (current) drug therapy
CPT/HCPCS: 71046

== ENCOUNTER 2021-10-15 14:21 | Observation (INO) | payer MEDICARE, BC ==
[~2021-10-15] VITALS: Ht 160 cm; Wt 70.5 kg
[2021-10-15 15:09] LABS: BASO # 0.1 x10^3/uL (0.0-0.2); BASO % 1 % (0-3); EOS # 0.1 x10^3/uL (0.0-0.7); EOS % 1 % (0-3); HEMATOCRIT 35.7 % (36.0-47.0); HEMOGLOBIN 11.7 g/dL (12.0-15.5); LYMPH # 1.3 x10^3/uL (1.0-4.8); LYMPH % 11 % (24-48); MEAN CORPUSCULAR HEMOGLOBIN 28 pg (25-35); MEAN CORPUSCULAR HGB CONC 33 g/dL (31-37); MEAN CORPUSCULAR VOLUME 84 fL (79-100); MONO # 0.9 x10^3/uL (0.0-1.1); MONO % 7 % (0-9); NEUT # 9.5 x10^3uL (1.8-7.7); NEUT % 80 % (31-73); PLATELET COUNT 247 x10^3/uL (140-400); RED BLOOD COUNT 4.26 x10^6/uL (3.50-5.40); RED CELL DISTRIBUTION WIDTH 15.1 % (11.5-14.5)
--- NOTE | 2021-10-15 15:13 | PHYS DOC ---
Past History Past Medical History: Angina, High Cholesterol, Heart Disease, Hypertension, [place] Past Surgical History: Coronary Bypass Surgery, Pacemaker, Other Additional Past Surgical Histo: multiple proceedures for a fib Smoking: Non-smoker Alcohol Use: None Drug Use: None General Adult EDM: Chief Complaint: CHEST PAIN HPI: HPI: 81-year-old female presents with chest pain. She has been having chest pain throughout the day today. It is moderate in intensity. It is a central heaviness feeling. She is also has some shortness of breath but no diaphoresis. The patient has a long cardiac history so she is concerned. She denies fever or chills. She has had spontaneous pancreatitis in the past and not associated with alcohol. Review of Systems: Review of Systems: Constitutional: Denies fever or chills Eyes: Denies change in visual acuity HENT: Denies nasal congestion or sore throat Respiratory: Denies cough or shortness of breath Cardiovascular: Chest pain GI: Epigastric abdominal pain. Denies nausea, vomiting, bloody stools or diarrhea : Denies dysuria Musculoskeletal: Denies back pain or joint pain Integument: Denies rash Neurologic: Denies headache, focal weakness or sensory changes Endocrine: Denies polyuria or polydipsia Lymphatic: Denies swollen glands Psychiatric: Denies depression or anxiety Allergies: Allergies: Allergies Coded Allergies Type Severity Reaction Last Updated Verified Ijzeimz-GHY-VzX Reductase Inhibitor Allergy Intermediate 10/15/21 Yes morphine Allergy Intermediate 10/15/21 Yes Iodinated Contrast Media Allergy Mild ANAPHYLAXIS 10/15/21 Yes diphenhydramine Allergy Mild EXCITABILITY 10/15/21 Yes ramipril Allergy Unknown 10/15/21 Yes Physical Exam: PE: Constitutional: Well developed, well nourished, no acute distress, non-toxic appearance. [] HENT: Normocephalic, atraumatic, bilateral external ears normal, oropharynx moist, no oral exudates, nose normal. [] Eyes: PERRLA, EOMI, conjunctiva normal, no discharge. [] Neck: Normal range of motion, no tenderness, supple, no stridor. [] Cardiovascular: Heart rate 70, regular rhythm, no murmur [] Lungs & Thorax: Bilateral breath sounds clear to auscultation [] Abdomen: Bowel sounds normal, soft, no tenderness, no masses, no pulsatile masses. [] Skin: Well-healed surgical scar from open heart surgery. [] Back: No tenderness, no CVA tenderness. [] Extremities: No tenderness, no cyanosis, no clubbing, ROM intact, no edema. [] Neurologic: Alert and oriented X 3, normal motor function, normal sensory function, no focal deficits noted. [] Psychologic: Affect normal, judgement normal, mood normal. [] Current Patient Data: Vital Signs: Vital Signs Date Time Temp Pulse Resp B/P (MAP) Pulse Ox O2 Delivery O2 Flow Rate FiO2 10/15/21 14:34 98.1 70 12 153/54 (87) 99 Room Air EKG: EKG: Regular rhythm, rate 114, leftward axis, wide QRS, no obvious ST elevation or depression. Patient has a pacemaker but no spikes are seen [] Radiology/Procedures: Radiology/Procedures: [] Impressions: EXAM: XR CHEST 1V 10/15/2021 3:01 PM CLINICAL INDICATION: Chest pain COMPARISON: Chest radiograph 01/09/2021 TECHNIQUE: AP view of the chest FINDINGS: There are changes of median sternotomy. There is a dual-lead pacemaker. The heart is mildly enlarged. There are new mild interstitial opac ities in the lung bases and suggestion of interlobular septal thickening in the right lung periphery. Unchanged nodular opacities projecting over the lung bases, likely nipple shadows. No pleural effusion or pneumothorax. IMPRESSION: Mild interstitial opacities suspicious for interstitial pulmonary edema. Electronically signed by: Skylar Hernandez MD (10/15/2021 4:00 PM) [id number] DICTATED AND SIGNED BY: SKYLAR HERNANDEZ MD DATE: 10/15/21 1558 CC: NARDA MEHTA MD; PREM PRETTY DO ~ Exam: CT of abdomen and pelvis without contrast INDICATION: Epigastric pain TECHNIQUE: Sequential axial images through the abdomen and pelvis obtained without IV contrast. Sagittal and coronal reformatted images were reconstructed from the axial data and reviewed. Exposure: One or more of the following in the visualized dose reduction techniques were utilized for this examination: 1. Automated exposure control 2. Adjustment of the MA and/or KV according to patient size 3. Use of iterative of reconstructive technique Comparisons: None FINDINGS: Heart size is normal. No pericardial effusion. Patchy airspace disease at the left lung base. No pleural effusion. Evaluation solid organs limited secondary to noncontrast technique. Liver, spleen, pancreas and adrenals are unremarkable. Gallbladder surgically absent. No perinephric inflammation or hydronephrosis. No renal or ureteral calculi are identified. Bladder is partially distended and appears thin-walled. Uterus is absent. No abn ormal adnexal mass. Diverticulosis noted at the descending and sigmoid colon without evidence of acute diverticulitis. Appendix is is not seen. No free intra-abdominal air or fluid. No obstruction. Abdominal aorta has normal course and caliber. No enlarged intra-abdominal lymph nodes are identified. No suspicious osseous lesions or acute fractures. IMPRESSION: No acute process identified within the abdomen or pelvis. Electronically signed by: Lauren Deshpande MD (10/15/2021 3:48 PM) [facility] DICTATED AND SIGNED BY: LAUREN DESHPANDE MD DATE: 10/15/211541 CC: NARDA MEHTA MD; PREM PRETTY DO ~ Heart Score: C/O Chest Pain: Yes HEART Score for Chest Pain: HEART Score for Chest Pain Response (Comments) Value History Moderately Suspicious 1 ECG Nonspecific Repolarizatio 1 Age > 65 2 Risk Factors >3 Risk Factors or Hx CAD 2 Troponin < Normal Limit 0 Total 6 Risk Factors: Risk Factors: DM, Current or recent (<one month) smoker, HTN, HLP, family history of CAD, obesity. Risk Scores: Score 0 - 3: 2.5% MACE over next 6 weeks - Discharge Home Score 4 - 6: 20.3% MACE over next 6 weeks - Admit for Clinical Observation Score 7 - 10: 72.7% MACE over next 6 weeks - Early Invasive Strategies Course & Med Decision Making: Course & Med Decision Making Pertinent Labs and Imaging studies reviewed. (See chart for details) The patient has a white count of 12. Her pro BNP is 1826. She has had normal levels as well as a level above 2000 in the past. Troponin is negative. EKG is negative for acute findings. Her heart rate has improved to 83. Given her risk factors, the patient meets criteria for admission and trending of her troponins based on her heart score. The patient's chest x-ray is significant for mild pulmonary edema. Her CT of the abdomen pelvis is negative for acute findings. I will treat her with Lasix. I spoke with the hospitalist, Dr. Ibarra and he has agreed to admit the patient. [] Dragon Disclaimer: Dragon Disclaimer: This electronic medical record was generated, in whole or in part, using a voice recognition dictation system. Departure Departure: Impression: Primary Impression: Chest pain Additional Impression: CHF exacerbation Disposition: 09 ADMITTED INPATIENT Admitting Physician: Rico Ibarra Condition: STABLE Referrals: NARDA MEHTA MD (PCP) PREM PRETTY DO Oct 15, 2021 15:13
[2021-10-15 15:14] LABS: CALCIUM 9.8 mg/dL (8.5-10.1); CREATININE 1.3 mg/dL (0.6-1.0); GFR 39.4; POTASSIUM 3.6 mmol/L (3.5-5.1)
[2021-10-15 15:25] LABS: ALBUMIN/GLOBULIN RATIO 1.1 (1.0-1.7); TOTAL BILIRUBIN 1.5 mg/dL (0.2-1.0); TOTAL PROTEIN 7.6 g/dL (6.4-8.2)
--- NOTE | 2021-10-15 15:51 | RAD ---
Exam: CT of abdomen and pelvis without contrast INDICATION: Epigastric pain TECHNIQUE: Sequential axial images through the abdomen and pelvis obtained without IV contrast. Sagit jolynn and coronal reformatted images were reconstructed from the axial data and reviewed. Exposure: One or more of the following in the visualized dose reduction techniques were utilized for this examination: 1. Automated exposure control 2. Adjustment of the MA and/or KV according to patient size 3. Use of iterative of reconstructive technique Comparisons: None FINDINGS: Heart size is normal. No pericardial effusion. Patchy airspace disease at the left lung base. No pleu ral effusion. Evaluation solid organs limited secondary to noncontrast technique. Liver, spleen, pancreas and adrenals are unremarkable. Gallbladder surgically absent. No perinephric inflammation or hydronephrosis. No renal or ureteral calculi are identified. Bladder is partially distended and appears thin-walled. Uterus is absent. No abnormal adnexal mass. Diverticulosis noted at the descending and sigmoid colon without evidence of acute diverticulitis. Ap pendix is is not seen. No free intra-abdominal air or fluid. No obstruction. Abdominal aorta has normal course and caliber. No enlarged intra-abdominal lymph nodes are identified. No suspicious osseous lesions or acute fractures. IMPRESSION: No acute process identified within the abdomen or pelvis. Electronically signed by: Lauren Franco MD (10/15/2021 3:48 PM) [facility]
--- NOTE | 2021-10-15 16:03 | RAD ---
EXAM: XR CHEST 1V 10/15/2021 3:01 PM CLINICAL INDICATION: Chest pain COMPARISON: Chest radiograph 01/09/2021 TECHNIQUE: AP view of the chest FINDINGS: There are changes of median sternotomy. There is a dual-lead pacemaker. The heart is mildl y enlarged. There are new mild interstitial opacities in the lung bases and suggestion of interlobula r septal thickening in the right lung periphery. Unchanged nodular opacities projecting over the lung bases, likely nipple shadows. No pleural effusion or pneumothorax. IMPRESSION: Mild interstitial opacities suspicious for interstitial pulmonary edema. Electronically signed by: Skylar Hernandez MD (10/15/2021 4:00 PM) [id number]
[2021-10-15] MEDS ORDERED: ONDANSETRON PF 4 MG/2 ML VIAL. IVP PRN (16:30)
[2021-10-15] MEDS ORDERED: FUROSEMIDE 40 MG/4 ML VIAL IVP ONE (16:30)
[2021-10-15] MEDS ORDERED: POTASSIUM CHLORIDE 20 MEQ TABLET.ER. PO ONE (16:30)
[2021-10-15 17:30] VITALS: BP 164/70
[2021-10-15] MEDS ORDERED: OMEP40CA7 PO (17:51)
[2021-10-15] MEDS ORDERED: METO100T7 PO (17:51)
[2021-10-15] MEDS ORDERED: CLOP75TA PO (17:51)
[2021-10-15] MEDS ORDERED: INSU100I17 SQ (17:51)
[2021-10-15] MEDS ORDERED: NIFE60TA14 PO (17:51)
[2021-10-15] MEDS ORDERED: INSU100I27 SQ (17:51)
[2021-10-15] MEDS ORDERED: FURO20TA3 PO (17:51)
[2021-10-15] MEDS ORDERED: LORA10TA68 PO (18:24)
--- NOTE | 2021-10-15 18:51 | EKG ---
[address] [address] Test Date: 2021-10-15 Test Time: 14:36:46 Pat Name: CHRISTOPHER HAYNES Department: Room: 124 A Gender: F Gut Sorter: : 1940 Requested By: PREM PRETTY Order Number: [id number] Reading MD: Sahil Barreto Measurements Intervals [place] Rate: 114 P: -95 [place]: 150 QRS: -98 QRSD: 176 T: 87 QT: 322 QTc: 447 Interpretive Statements V PACED Electronically Signed On 10-17-2021 18:21:20 CDT by Sahil Barreto
[2021-10-15 20:09] VITALS: BP 160/72
[2021-10-15] MEDS ORDERED: SENN-82 PO (20:46)
[2021-10-15] MEDS ORDERED: INSULIN GLARGINE SYRINGE. SQ SCH (21:00)
[2021-10-15] MEDS ORDERED: METOPROLOL TART IMMED RELEASE 50 MG TABLET PO SCH (21:00)
[2021-10-15 23:55] VITALS: BP 144/82
[2021-10-16 06:20] LABS: BASO # 0.1 x10^3/uL (0.0-0.2); BASO % 1 % (0-3); EOS # 0.2 x10^3/uL (0.0-0.7); EOS % 2 % (0-3); HEMATOCRIT 35.5 % (36.0-47.0); HEMOGLOBIN 11.7 g/dL (12.0-15.5); LYMPH # 1.2 x10^3/uL (1.0-4.8); LYMPH % 13 % (24-48); MEAN CORPUSCULAR HEMOGLOBIN 28 pg (25-35); MEAN CORPUSCULAR HGB CONC 33 g/dL (31-37); MEAN CORPUSCULAR VOLUME 84 fL (79-100); MONO # 0.8 x10^3/uL (0.0-1.1); MONO % 9 % (0-9); NEUT # 6.9 x10^3uL (1.8-7.7); NEUT % 75 % (31-73); PLATELET COUNT 250 x10^3/uL (140-400); RED BLOOD COUNT 4.24 x10^6/uL (3.50-5.40); RED CELL DISTRIBUTION WIDTH 15.2 % (11.5-14.5); WHITE BLOOD COUNT 9.2 x10^3/uL (4.0-11.0)
[2021-10-16 06:28] LABS: CALCIUM 9.5 mg/dL (8.5-10.1); CREATININE 1.3 mg/dL (0.6-1.0); GFR 39.4; POTASSIUM 3.5 mmol/L (3.5-5.1)
[2021-10-16 06:34] VITALS: BP 137/75
[2021-10-16] MEDS ORDERED: INSULIN LISPRO 300 UNITS/3 ML VIAL. SQ SCH (08:00)
--- NOTE | 2021-10-16 08:47 | HP ---
DATE OF SERVICE: 10/16/2021 ADMIT DATE: 10/15/2021 ATTENDING PHYSICIAN: Dr. Ibarra. CHIEF COMPLAINT: Shortness of breath. HISTORY OF PRESENT ILLNESS: This is an 81-year-old female, admitted with chest pressure and shortness of breath. She has central heaviness. The workup in the ED showed no acute ischemia. She had negative cardiac enzymes, but a chest x-ray showed vascular congestion. She has been drinking a lot of excess fluid due to indiscretion. She has an extensive cardiac history. PAST MEDICAL HISTORY: Significant for coronary artery bypass surgery, permanent pacemaker, hypertension, hypertensive heart disease, angina and hyperlipidemia. She sees Dr. Monsalve at [facility]. ALLERGIES: She has several allergies including IODINE, STATINS, DIPHENHYDRAMINE, MORPHINE AND RAMIPRIL, exact reaction is unclear. CURRENT MEDICATIONS: Reviewed. She was on scheduled Plavix 75 mg daily, Lasix 20 mg daily, insulin, loratadine, metoprolol, nifedipine, omeprazole and senna. SOCIAL HISTORY: She is a nonsmoker and nondrinker. FAMILY HISTORY: Noncontributory. REVIEW OF SYSTEMS: Significant for the adult-onset diabetes. She takes regular Lantus insulin, multiple cardiac surgeries, too numerous to list here. All other systems reviewed and turned to be negative. PHYSICAL EXAMINATION: GENERAL: When I saw her, this is a pleasant, middle-aged female. VITAL SIGNS: Initial vital signs showed a blood pressure of 160/72, repeat was down to 137/75, pulse is 71 and regular. She is afebrile. Oxygen saturation 97% on room air. HEENT: Head is without trauma. Pupils are reactive. Sclerae nonicteric. Oropharynx is clear. NECK: Supple, no bruits. LUNGS: Good breath sounds by the time I saw her. CARDIOVASCULAR: Regular heart tones. ABDOMEN: Soft. EXTREMITIES: Without edema. NEUROLOGIC: Focally intact. SKIN: Warm and dry. PERTINENT LABORATORY AND IMAGING STUDIES: Hemoglobin on admission was 11.7 g/dL with a white count of 9200. Chemistry panel: Creatinine on admission was 1.3 mg/dL. Electrolytes within range. Nonfasting blood sugar 209, bilirubin 1.5. Transaminases are normal. Cardiac enzymes negative for coronary ischemia. She had a chest x-ray, which showed mild interstitial opacities consistent with pulmonary edema. CT of the abdomen showed no acute pathologic process or obstruction. ASSESSMENT: 1. An 81-year-old female with jadgb-[id number] congestive heart failure. 2. Pulmonary edema, mild. 3. History of coronary artery disease. 4. Coronary ischemia ruled out. 5. Permanent pacemaker. 6. Hypertension. 7. Type 2 diabetes. PLAN: 1. Observation status. 2. Diuresis. 3. Fluid restriction, daily weights. 4. Serial chemistries. 5. Continue home medications. HAYDEN/SAMIRA DR: Samuel TID: [id number] CC: NARDA MEHTA MD
[2021-10-16] MEDS ORDERED: METOPROLOL TART IMMED RELEASE 50 MG TABLET PO SCH (09:00)
[2021-10-16] MEDS ORDERED: CLOPIDOGREL BISULFATE 75 MG TABLET PO SCH (09:00)
[2021-10-16] MEDS ORDERED: PANTOPRAZOLE 40 MG TABLET. PO SCH (09:00)
--- NOTE | 2021-10-16 16:11 | DS ---
DATE OF DISCHARGE: 10/16/2021 ATTENDING PHYSICIAN: Dr. Ibarra. FINAL DISCHARGE DIAGNOSES: 1. Acute exacerbation of congestive heart failure, compensated. 2. Chest pain, coronary ischemia ruled out. 3. Known coronary artery disease with multiple previous procedures. 4. Permanent pacemaker. 5. Hypertension. 6. Type 2 diabetes, insulin-dependent. 7. Gastroesophageal reflux disease. HISTORY AND PHYSICAL: The patient is a pleasant 81-year-old female with multiple cardiac issues. She sees Dr. Monsalve at [facility]. She presented with increasing shortness of breath, dyspnea with exertion and 3-pillow orthopnea. She had a chest x-ray evidence of vascular congestion. She was admitted overnight for treatment. PHYSICAL EXAMINATION: Please see my dictated note. PERTINENT LABORATORY AND X-RAY STUDIES: Admission hemoglobin was 11.7 grams, white count 9200. Chemistry panel: Creatinine is 1.3 mg percent. Electrolytes within range. Serology negative for coronavirus. Chest x-ray demonstrated vascular congestion and interstitial edema. COURSE IN HOSPITAL: The patient was admitted. She was given a large 80 mg dose of Lasix with prompt diuresis. Followup chemistry is unremarkable. Cardiac enzymes were negative for coronary ischemia. She was up and ambulating. She had adequate saturation on room air. Vital signs were stable. When I saw her the next morning, her lungs were clear and she felt better. Strong encouragement for her to weigh herself every day and keep within a narrow range of plus or minus 1 pound of her dry weight, it is approximately 148 pounds by our scales. Therefore, she is discharged home on the next hospital day in stable condition with explicit drug and followup care. There are no changes on meds. She should continue her Plavix 75 mg daily, Lasix 20 mg daily, insulin regular and Lantus, Claritin p.r.n., metoprolol, nifedipine, omeprazole, and senna doses unchanged. She will follow up with Dr. Mehta and Dr. Monsalve as scheduled. I encouraged her to weigh herself every day and to limit her fluid intake to keep within a narrow range of plus or minus 1 pound of her dry weight, she understands. I tala her a diagram. The patient was then discharged from our hospital in stable condition with explicit drug and followup care. HAYDEN/GEMMA/TIERNEY DR: HAYDEN/manoj TID: [id number] CC: NARDA MEHTA MD
== END 2021-10-16 08:45 | disposition home or self-care (01) ==
LOC: ER 14:21 → INTOOBSV 16:28 → 1 SOUTH 16:28
PROVIDERS: ADMIT Hospitalist; ATTEND Hospitalist
DX: I11.0 Hypertensive heart disease with heart failure (principal); Z20.822 Contact with and (suspected) exposure to COVID-19; I50.23 Acute on chronic systolic (congestive) heart failure; R07.89 Other chest pain; J81.1 Chronic pulmonary edema; I25.10 Atherosclerotic heart disease of native coronary artery without angina pectoris; I25.9 Chronic ischemic heart disease, unspecified; E11.9 Type 2 diabetes mellitus without complications; I48.91 Unspecified atrial fibrillation; E78.00 Pure hypercholesterolemia, unspecified; E78.5 Hyperlipidemia, unspecified; K21.9 Gastro-esophageal reflux disease without esophagitis; Z79.4 Long term (current) use of insulin; Z95.0 Presence of cardiac pacemaker; Z95.1 Presence of aortocoronary bypass graft; Z79.899 Other long term (current) drug therapy; Z98.890 Other specified postprocedural states; Z79.01 Long term (current) use of anticoagulants
CPT/HCPCS: 36415; 71045; 74176; 80048; 80053; 82947; 83880; 84484; 85025; 87426; 93005; 96374; 99285; G0378; J1815; J1940; U0003; G0379